=== PATIENT | male | born 1955 | race Two or more races ===

== ENCOUNTER 2019-02-01 11:20 | Inpatient (IN) | payer OTHER ==
[2019-02-01 12:43] VITALS: BMI 32.7
--- NOTE | 2019-02-01 13:55 | HP ---
COWS - Scale Resting Pulse: 0= CT 80 or Below Sweatin= Chills/Flushing Restless Observation: 1= Difficult to Sit Still Pupil Size: 0= Normal to Room Light Bone or Joint Aches: 0= None Runny Nose/ Eye Tearin= Runny Nose/Eyes GI Upset > 30mins: 1= Stomach Cramp Tremor Observation: 2= Slight Tremor Visible Yawning Observation: 1= 1-2x During Session Anxiety or Irritability: 0= None Goose Flesh Skin: 0=Smooth Skin COWS Score: 8 CIWA Score - Admission Criteria OAS Guidelines: Admission for Medically Managed Detox: Requires at least one of the followin. CIWA greater than 12 2. Seizures within the past 24 hours 3. Delirium tremens within the past 24 hours 4. Hallucinations within the past 24 hours 5. Acute intervention needed for co occurring medical disorder 6. Acute intervention needed for co occurring psychiatric disorder 7. Severe withdrawal that cannot be handled at a lower level of care (continued vomiting, continued diarrhea, abnormal vital signs) requiring intravenous medication and/or fluids 8. Admitting History and Physical - Admission History Source: Patient Limitations to Obtaining History: No Limitations - Past Medical History Cardiovascular: Yes: HTN, [place] (x2) Hepatobiliary: Yes: Hepatitis B (currently being treated) Renal/: Yes: BPH Infectious Disease: Yes: HIV (on HAART) - Past Surgical History Past Surgical History: Yes: Cholecystectomy - Smoking History Smoking history: Former smoker Have you smoked in the past 12 months: No If you are a former smoker, when did you quit?: 27 + years - Alcohol/Substance Use Hx Alcohol Use: Yes (drank 2 beers during Superbowl, otherwise no use) Admission [facility] Chief Complaint: heroin abuse, crack cocaine abus Allergies/Adverse Reactions: Allergies Allergy/AdvReac Type Severity Reaction Status Date / Time codeine Allergy Unknown Rash Verified 02/01/19 12:22 Sulfa (Sulfonamide Allergy Unknown Rash Verified 02/01/19 12:22 Antibiotics) History of Present Illness: 63 y.o. M PMH HIV+ on HAART, HTN, Hep B on treatment, 2x FL's (most recently this March), HLD, asthma, BPH presenting for detox and rehab. Heroin: Daily use; 0.5g (7-8 bags) but uses more if he can get more. Last used earlier today, ~0.5g but has been using all night. Sniffs, never injected. Has been using for "a couple years". Has never overdosed in the past. Crack, cocaine: uses a few times per week. Uses as much as he can get a hold of. Never injected in the past. EtOH: socially. drinks "once in a [place]". PSH: cholecystectomy, prostate laser treatment Social hx: was in apartment but lost it a few months ago, now homeless. Not currently working. on SSI. All: codeine, sulfur Meds: lisinopril Exam Limitations: No Limitations - Ebola screening Have you traveled outside of the country in the last 21 days: No Have you had contact with anyone from an Ebola affected area: No Do you have a fever: No - Review of Systems Constitutional: Diaphoresis EENT: reports: Tearing, Other (rhinorrhea) Respiratory: reports: No Symptoms reported Cardiac: reports: No Symptoms Reported GI: reports: Abdominal cramping : reports: Other (urinary hesitancy) Musculoskeletal: reports: No Symptoms Reported Integumentary: reports: No Symptoms Reported Neuro: reports: Tremors Endocrine: reports: No Symptoms Reported Hematology: reports: No Symptoms Reported Psychiatric: reports: Mood/Affect Appropiate, Orientated x3 Patient History - Patient Medical History Hx Anemia: No Hx Asthma: Yes Hx Chronic Obstructive Pulmonary Disease (COPD): No Hx Cancer: No Hx Cardiac Disorders: Yes (heart murmur, evaluated by cardio 09/27/14) Hx Hypertension: Yes Hx Hypercholesterolemia: Yes Hx Pacemaker: No Hx Seizures: No Hx Dementia: No Hx Diabetes: No Hx Gastrointestinal Disorders: No Hx Liver Disease: No Hx Genitourinary Disorders: Yes (BPH) Hx Sexually Transmitted Disorders: No Hx Renal Disease (ESRD): No Hx Thyroid Disease: No Hx Human Immunodeficiency Virus (HIV): Yes Hx Hepatitis C: No Hx Depression: No Hx Bipolar Disorder: No Other Medical History: Hepatitis B - Patient Surgical History Past Surgical History: Yes Hx Neurologic Surgery: No Hx Cataract Extraction: No Hx Cardiac Surgery: No Hx Lung Surgery: No Hx Abdominal Surgery: No Hx Appendectomy: No Hx Cholecystectomy: Yes (1995, general anesthesia, no complications) Hx Genitourinary Surgery: Yes (prostatic laser surgery) Hx Section: No Hx Orthopedic Surgery: No Anesthesia Reaction: No - Smoking Cessation Smoking history: Former smoker Have you smoked in the past 12 months: No If you are a former smoker, when did you quit?: 27 + years Cigars Per Day: 0 Hx Chewing Tobacco Use: No Initiated information on smoking cessation: Yes 'Breaking Loose' booklet given: 02/01/19 - Substance & Tx. History Hx Alcohol Use: Yes Substance Use Type: Cocaine, Heroin Hx Substance Use Treatment: No - Substances abused Heroin Substance route: Inhalation Frequency: Daily Amount used: 1 gram Age of first use: 22 Date of last use: 02/01/19 Crack Substance route: Inhalation Frequency: 3-6 times per week Amount used: varies Age of first use: 22 Date of last use: 01/31/19 Cocaine Substance route: Inhalation Frequency: Daily Amount used: 1 1/2 gram Age of first use: 22 Date of last use: 01/31/19 Admission Physical Exam [facility] - Vital Signs Vital Signs: Vital Signs - 24 hr 02/01/19 02/01/19 12:39 13:24 Temperature 98.9 F 98.9 F Pulse Rate 75 75 Respiratory 17 17 Rate Blood Pressure 194/96 H 194/96 H - Physical General Appearance: Yes: No Apparent Distress HEENTM: Yes: Hearing grossly Normal, Normal ENT Inspection, Normocephalic, Normal Voice, SOFÍA Respiratory: Yes: Within Normal Limits, Lungs Clear, Normal Breath Sounds, No Respiratory Distress, No Accessory Muscle Use Neck: Yes: Within Normal Limits Cardiology: Yes: Regular Rate, Systolic Murmur Abdominal: Yes: Within Normal Limits, Non Tender, Soft Genitourinary: Yes: Hesitency Back: Yes: Normal Inspection Musculoskeletal: Yes: full range of Motion Extremities: Yes: Within Normal Limits, Normal Range of Motion Neurological: Yes: Fully Oriented, Alert, Normal Mood/Affect Integumentary: Yes: Within Normal Limits Lymphatic: Yes: Within Normal Limits - Diagnostic (1) Heroin abuse Current Visit: Yes Status: Chronic (2) Cocaine abuse Current Visit: Yes Status: Chronic (3) Essential hypertension Current Visit: Yes Status: Chronic Cleared for Admission [facility] - Detox or Rehab Detox Regimen/Protocol: Methadone Breathalyzer - Breathalyzer Breathalyzer: 0 Urine Drug Screen - Test Device Lot number: [id number] Expiration date: 09/25/20 - Control Is test valid?: Yes - Results Drug screen NEGATIVE: No Urine drug screen results: JER-Cocaine, FEN-Fentanyl, MOP-Opiates, OXY-Oxycodone Inpatient Rehab Admission - Rehab Decision to Admit Inpatient rehab admission?: No
[2019-02-01] MEDS ORDERED: IBUPROFEN 400 MG TABLET (FP) PO PRN (14:12)
[2019-02-01] MEDS ORDERED: BISMUTH SUBSALICYLATE 524 MG/30 ML UD PO PRN (14:12)
[2019-02-01] MEDS ORDERED: MAGNESIUM CITRATE 300 ML BOTTLE PO PRN (14:12)
[2019-02-01] MEDS ORDERED: METHOCARBAMOL 500 MG TABLET PO PRN (14:12)
[2019-02-01] MEDS ORDERED: hydrOXYzine PAMOATE 25 MG CAPSULE (FP) PO PRN (14:12)
[2019-02-01] MEDS ORDERED: cloNIDine HCL 0.1 MG TABLET PO PRN (14:12)
[2019-02-01] MEDS ORDERED: MENTHOL/PHENOL 1 EACH UD MM PRN (14:12)
[2019-02-01] MEDS ORDERED: MAGNESIUM HYDROX 2400MG/30ML ORAL SUSPENSION 30 ML CUP PO PRN (14:12)
[2019-02-01] MEDS ORDERED: MAG HYDROX/AL HYDROX/SIMETH 30 ML UNIT-DOSE CUP PO PRN (14:12)
[2019-02-01] MEDS ORDERED: MELATONIN 5 MG TABLETS PO PRN (14:12)
[2019-02-01] MEDS ORDERED: ACETAMINOPHEN 325 MG TABLET (FP) PO PRN ×2 (14:12)
[2019-02-01] MEDS ORDERED: ALBUTEROL SO4 8 GM HFA INHALER IH PRN (15:04)
[2019-02-01] MEDS ORDERED: METHADONE HCL 10 MG TABLET (FOR DETOX USE ONLY) PO ONE (15:25)
--- NOTE | 2019-02-01 15:37 | PN ---
Teaching Attending Note Name of Resident: Rufina Preston ATTENDING PHYSICIAN STATEMENT I saw and evaluated the patient. I reviewed the resident's note and discussed the case with the resident. I agree with the resident's findings and plan as documented. SUBJECTIVE: Agree with subjective resident findings OBJECTIVE: Agree with objective resident findings ASSESSMENT AND PLAN: Agree with admission to detox.
[2019-02-01] MEDS: LISINOPRIL 20 MG TABLET (FP) PO SCH (17:07)
[2019-02-01] MEDS: ASPIRIN 81 MG CHEWABLE TABLETS PO SCH (17:07)
[2019-02-01] MEDS ORDERED: ENTECAVIR 0.5 MG TABLET PO SCH (18:00)
[2019-02-01] MEDS: DARUNAVIR ETHANOLATE 600 MG TAB PO SCH (19:08)
[2019-02-01] MEDS: BICTEGRAV/EMTRICIT/TENOFOV (BIKTARVY) 50-200-25 MG TABLET PO SCH (19:09)
[2019-02-01] MEDS: RITONAVIR 100 MG TABLET PO SCH (19:09)
[2019-02-01] MEDS: THIAMINE HCL 100 MG TABLET (FP) PO SCH (22:33)
[2019-02-01] MEDS: ATORVASTATIN CA 10 MG TABLET (FP) PO SCH (22:33)
[2019-02-01] MEDS: CARVEDILOL 3.125 MG TABLET (FP) PO SCH (22:33)
[2019-02-02] MEDS: RITONAVIR 100 MG TABLET PO SCH ×2 (07:44→17:21)
[2019-02-02] MEDS: BICTEGRAV/EMTRICIT/TENOFOV (BIKTARVY) 50-200-25 MG TABLET PO SCH (07:44)
[2019-02-02] MEDS: DARUNAVIR ETHANOLATE 600 MG TAB PO SCH ×2 (07:44→17:21)
[2019-02-02 09:41] LABS: HEMATOCRIT 43.9 % (35.4-49); HEMOGLOBIN 14.9 GM/dL (11.7-16.9); MCH 31.4 pg (25.7-33.7); MCHC 33.8 g/dl (32.0-35.9); MEAN CELL VOLUME 92.9 fl (80-96); MEAN PLT VOLUME 10.3 fl (7.5-11.1); PLATELET COUNT 236 K/MM3 (134-434); RBC 4.73 M/mm3 (4.00-5.60); RDW 13.5 % (11.9-15.9); WHITE BLOOD COUNT 7.3 K/mm3 (4.0-10.0)
[2019-02-02 09:58] LABS: ALBUMIN 4.1 g/dl (3.4-5.0); BILIRUBIN,TOTAL 0.7 mg/dL (0.2-1); BLOOD UREA NITROGEN 14.3 mg/dL (7-18); CALCIUM 9.3 mg/dL (8.5-10.1); CREATININE 1.4 mg/dL (0.55-1.3); POTASSIUM 3.9 mmol/L (3.5-5.1); TOT PROT 7.7 g/dl (6.4-8.2)
[2019-02-02] MEDS ORDERED: METHADONE HCL 5 MG TABLET (FOR DETOX USE ONLY) PO ONE (10:00)
--- NOTE | 2019-02-02 10:28 | PN ---
[facility] COWS - Scale Resting Pulse: 0= [place] 80 or Below Sweatin= Chills/Flushing Restless Observation: 0= Sits Still Pupil Size: 1= Pupils >than Normal Bone or Joint Aches: 1= Mild Discomfort Runny Nose/ Eye Tearin= None GI Upset > 30mins: 1= Stomach Cramp Tremor Observation of Outstretched Hands: 2= Slight Tremor Visible Yawning Observation: 0= None Anxiety or Irritability: 2=Irritable/Anxious Goose Flesh Skin: 3=Piloerection COWS Score: 11 S Progress Note (SOAP) Subjective: 63 years old male admitted on 02/01/19 for opiate withdrawal sx management treated with methadone detox regimen patient tolerated well ate breakfast resting in bed Objective: 02/02/19 10:27 Vital Signs Temperature 98.4 F 02/02/19 09:19 Pulse Rate 64 02/02/19 09:19 Respiratory Rate 18 02/02/19 09:19 Blood Pressure 157/77 02/02/19 09:19 O2 Sat by Pulse Oximetry (%) Laboratory Last Values WBC 7.3 K/mm3 (4.0-10.0) 02/02/19 06:15 RBC 4.73 M/mm3 (4.00-5.60) 02/02/19 06:15 Hgb 14.9 GM/dL (11.7-16.9) 02/02/19 06:15 Hct 43.9 % (35.4-49) 02/02/19 06:15 MCV 92.9 fl (80-96) 02/02/19 06:15 MCH 31.4 pg (25.7-33.7) 02/02/19 06:15 MCHC 33.8 g/dl (32.0-35.9) 02/02/19 06:15 RDW 13.5 % (11.9-15.9) 02/02/19 06:15 Plt Count 236 K/MM3 (134-434) 02/02/19 06:15 MPV 10.3 fl (7.5-11.1) 02/02/19 06:15 Sodium 141 mmol/L (136-145) 02/02/19 06:15 Potassium 3.9 mmol/L (3.5-5.1) 02/02/19 06:15 Chloride 102 mmol/L (98-107) 02/02/19 06:15 Carbon Dioxide 35 mmol/L (21-32) H 02/02/19 06:15 Anion Gap 4 MMOL/L (8-16) L 02/02/19 06:15 BUN 14.3 mg/dL (7-18) 02/02/19 06:15 Creatinine 1.4 mg/dL (0.55-1.3) H 02/02/19 06:15 Est GFR (CKD-EPI)AfAm 62.40 02/02/19 06:15 Est GFR (CKD-EPI)NonAf 53.84 02/02/19 06:15 Random Glucose 106 mg/dL (74-106) 02/02/19 06:15 Calcium 9.3 mg/dL (8.5-10.1) 02/02/19 06:15 Total Bilirubin 0.7 mg/dL (0.2-1) 02/02/19 06:15 AST 29 U/L (15-37) 02/02/19 06:15 ALT 36 U/L (13-61) 02/02/19 06:15 Alkaline Phosphatase 81 U/L (45-117) 02/02/19 06:15 Total Protein 7.7 g/dl (6.4-8.2) 02/02/19 06:15 Albumin 4.1 g/dl (3.4-5.0) 02/02/19 06:15 lab noted 02/02/19 10:27 resume antihypertensive medication Assessment: 02/02/19 10:28 opiate withdrawal sx Plan: continue methadone detox regimen
[2019-02-02] MEDS: PRENATAL VITAMINS W/ FOLIC ACID TABLET (FP) PO SCH (10:40)
[2019-02-02] MEDS: TAMSULOSIN HCL 0.4 MG CAP PO SCH (10:40)
[2019-02-02] MEDS: CARVEDILOL 3.125 MG TABLET (FP) PO SCH ×2 (10:40→21:52)
[2019-02-02] MEDS: ENTECAVIR 0.5 MG TABLET PO SCH (10:40)
[2019-02-02] MEDS: ASPIRIN 81 MG CHEWABLE TABLETS PO SCH (10:40)
[2019-02-02] MEDS: LISINOPRIL 20 MG TABLET (FP) PO SCH (10:40)
[2019-02-02] MEDS ORDERED: FLU VACCINE QUAD 60 MCG/0.5 ML (MDV 19-20) IM ONE (12:00)
--- NOTE | 2019-02-02 12:00 | EKG ---
Test Reason : Blood Pressure : / mmHG Vent. Rate : 061 BPM Atrial Rate : 061 BPM P-R Int : 152 ms QRS Dur : 084 ms QT Int : 470 ms P-R-T Axes : 053 -35 138 degrees QTc Int : 473 ms NORMAL SINUS RHYTHM POSSIBLE LEFT ATRIAL ENLARGEMENT LEFT AXIS DEVIATION LEFT VENTRICULAR HYPERTROPHY ST ELEVATION, CONSIDER EARLY REPOLARIZATION, PERICARDITIS, OR INJURY T WAVE ABNORMALITY, CONSIDER LATERAL ISCHEMIA PROLONGED QT ABNORMAL ECG NO PREVIOUS ECGS AVAILABLE Confirmed by HERNÁN JERNIGAN MD ([id number]) on 02/02/2019 12:00:13 PM Referred By: Confirmed By:HERNÁN JERNIGAN MD
[2019-02-02] MEDS: THIAMINE HCL 100 MG TABLET (FP) PO SCH (21:52)
[2019-02-02] MEDS: ATORVASTATIN CA 10 MG TABLET (FP) PO SCH (21:52)
[2019-02-03] MEDS: LISINOPRIL 20 MG TABLET (FP) PO SCH (09:08)
[2019-02-03] MEDS: ASPIRIN 81 MG CHEWABLE TABLETS PO SCH (09:09)
[2019-02-03] MEDS: TAMSULOSIN HCL 0.4 MG CAP PO SCH (09:09)
[2019-02-03] MEDS: PRENATAL VITAMINS W/ FOLIC ACID TABLET (FP) PO SCH (09:09)
[2019-02-03] MEDS: BICTEGRAV/EMTRICIT/TENOFOV (BIKTARVY) 50-200-25 MG TABLET PO SCH (09:09)
[2019-02-03] MEDS: RITONAVIR 100 MG TABLET PO SCH ×2 (09:09→17:50)
[2019-02-03] MEDS: CARVEDILOL 3.125 MG TABLET (FP) PO SCH ×2 (09:09→22:03)
[2019-02-03] MEDS: ENTECAVIR 0.5 MG TABLET PO SCH (09:09)
[2019-02-03] MEDS: DARUNAVIR ETHANOLATE 600 MG TAB PO SCH ×2 (09:09→17:50)
[2019-02-03] MEDS ORDERED: METHADONE HCL 10 MG TABLET (FOR DETOX USE ONLY) PO ONE (10:00)
--- NOTE | 2019-02-03 13:36 | EKG ---
Test Reason : Blood Pressure : / mmHG Vent. Rate : 071 BPM Atrial Rate : 071 BPM P-R Int : 120 ms QRS Dur : 084 ms QT Int : 444 ms P-R-T Axes : 068 -30 146 degrees QTc Int : 482 ms NORMAL SINUS RHYTHM BIATRIAL ENLARGEMENT LEFT AXIS DEVIATION LEFT VENTRICULAR HYPERTROPHY ST ELEVATION, CONSIDER EARLY REPOLARIZATION, PERICARDITIS, OR INJURY PROLONGED QT ABNORMAL ECG NO PREVIOUS ECGS AVAILABLE Confirmed by ELE GOFF MD ([id number]) on 02/03/2019 1:36:04 PM Referred By: Bridget MARTINEZ Confirmed By:ELE GOFF MD
--- NOTE | 2019-02-03 15:51 | PN ---
[facility] COWS - Scale Resting Pulse: 0= [place] 80 or Below Sweatin= No chills or Flushing Restless Observation: 1= Difficult to Sit Still Pupil Size: 1= Pupils >than Normal Bone or Joint Aches: 1= Mild Discomfort Runny Nose/ Eye Tearin= Nasal Congestion GI Upset > 30mins: 1= Stomach Cramp Tremor Observation of Outstretched Hands: 1= Tremor [place], Not Seen Yawning Observation: 1= 1-2x During Session Anxiety or Irritability: 1=Feels Anxious/Irritable Goose Flesh Skin: 0=Smooth Skin COWS Score: 8 S Progress Note (SOAP) Subjective: alert,irritable,pain in the body and back,interrupted sleep Objective: 02/03/19 15:49 Vital Signs Temperature 98.1 F 02/03/19 13:26 Pulse Rate 66 02/03/19 13:26 Respiratory Rate 18 02/03/19 13:26 Blood Pressure 146/70 02/03/19 13:26 O2 Sat by Pulse Oximetry (%) Laboratory Last Values WBC 7.3 K/mm3 (4.0-10.0) 02/02/19 06:15 RBC 4.73 M/mm3 (4.00-5.60) 02/02/19 06:15 Hgb 14.9 GM/dL (11.7-16.9) 02/02/19 06:15 Hct 43.9 % (35.4-49) 02/02/19 06:15 MCV 92.9 fl (80-96) 02/02/19 06:15 MCH 31.4 pg (25.7-33.7) 02/02/19 06:15 MCHC 33.8 g/dl (32.0-35.9) 02/02/19 06:15 RDW 13.5 % (11.9-15.9) 02/02/19 06:15 Plt Count 236 K/MM3 (134-434) 02/02/19 06:15 MPV 10.3 fl (7.5-11.1) 02/02/19 06:15 Sodium 141 mmol/L (136-145) 02/02/19 06:15 Potassium 3.9 mmol/L (3.5-5.1) 02/02/19 06:15 Chloride 102 mmol/L (98-107) 02/02/19 06:15 Carbon Dioxide 35 mmol/L (21-32) H 02/02/19 06:15 Anion Gap 4 MMOL/L (8-16) L 02/02/19 06:15 BUN 14.3 mg/dL (7-18) 02/02/19 06:15 Creatinine 1.4 mg/dL (0.55-1.3) H 02/02/19 06:15 Est GFR (CKD-EPI)AfAm 62.40 02/02/19 06:15 Est GFR (CKD-EPI)NonAf 53.84 02/02/19 06:15 Random Glucose 106 mg/dL (74-106) 02/02/19 06:15 Calcium 9.3 mg/dL (8.5-10.1) 02/02/19 06:15 Total Bilirubin 0.7 mg/dL (0.2-1) 02/02/19 06:15 AST 29 U/L (15-37) 02/02/19 06:15 ALT 36 U/L (13-61) 02/02/19 06:15 Alkaline Phosphatase 81 U/L (45-117) 02/02/19 06:15 Total Protein 7.7 g/dl (6.4-8.2) 02/02/19 06:15 Albumin 4.1 g/dl (3.4-5.0) 02/02/19 06:15 RPR Titer Nonreactive (NONREACTIVE) 02/02/19 06:15 Assessment: 02/03/19 15:50 withdrawal symptom Plan: continue detox methadone regimen
[2019-02-03] MEDS: THIAMINE HCL 100 MG TABLET (FP) PO SCH (22:03)
[2019-02-03] MEDS: ATORVASTATIN CA 10 MG TABLET (FP) PO SCH (22:03)
[2019-02-04] MEDS ORDERED: METHADONE HCL 5 MG TABLET (FOR DETOX USE ONLY) PO ONE (06:00)
[2019-02-04] MEDS: RITONAVIR 100 MG TABLET PO SCH (07:00)
[2019-02-04] MEDS: BICTEGRAV/EMTRICIT/TENOFOV (BIKTARVY) 50-200-25 MG TABLET PO SCH (07:00)
[2019-02-04] MEDS: DARUNAVIR ETHANOLATE 600 MG TAB PO SCH (07:00)
[2019-02-04 09:38] VITALS: BP 153/83; PULSE 58; TEMP 97.1
[2019-02-04] MEDS: TAMSULOSIN HCL 0.4 MG CAP PO SCH (09:38)
[2019-02-04] MEDS: PRENATAL VITAMINS W/ FOLIC ACID TABLET (FP) PO SCH (09:38)
[2019-02-04] MEDS: ASPIRIN 81 MG CHEWABLE TABLETS PO SCH (09:39)
[2019-02-04] MEDS: LISINOPRIL 20 MG TABLET (FP) PO SCH (09:39)
[2019-02-04] MEDS: ENTECAVIR 0.5 MG TABLET PO SCH (09:40)
[2019-02-04] MEDS: CARVEDILOL 3.125 MG TABLET (FP) PO SCH (09:40)
--- NOTE | 2019-02-04 15:09 | DS ---
[facility] Detox Discharge Summary Admission Date: 02/01/19 Discharge Date: 02/04/19 - History Present History: Alcohol Dependence, Cocaine Dependence, Opioid Dependence Additional Comments: Pt is medically cleared and is discharged today. Pt completed the detox protocol. Pt is instructed to follow-up with [facility] outpatient program and also to follow-up with his pmd. Pt verbalized understanding. Pt is alert and oriented x3 and in no respiratory distress. Pertinent Past History: H/o HIV+, HTN, HLD, asthma, BPH, Heroin, cocaine, and alcohol use disorder. - Physical Exam Results Vital Signs: Vital Signs Temperature 97.1 F L 02/04/19 09:37 Pulse Rate 58 L 02/04/19 09:37 Respiratory Rate 18 02/04/19 09:37 Blood Pressure 153/83 02/04/19 09:37 O2 Sat by Pulse Oximetry (%) Vital Signs 02/04/19 09:37 Temperature 97.1 F L Pulse Rate 58 L Respiratory 18 Rate Blood Pressure 153/83 Laboratory Last Values WBC 7.3 K/mm3 (4.0-10.0) 02/02/19 06:15 RBC 4.73 M/mm3 (4.00-5.60) 02/02/19 06:15 Hgb 14.9 GM/dL (11.7-16.9) 02/02/19 06:15 Hct 43.9 % (35.4-49) 02/02/19 06:15 MCV 92.9 fl (80-96) 02/02/19 06:15 MCH 31.4 pg (25.7-33.7) 02/02/19 06:15 MCHC 33.8 g/dl (32.0-35.9) 02/02/19 06:15 RDW 13.5 % (11.9-15.9) 02/02/19 06:15 Plt Count 236 K/MM3 (134-434) 02/02/19 06:15 MPV 10.3 fl (7.5-11.1) 02/02/19 06:15 Sodium 141 mmol/L (136-145) 02/02/19 06:15 Potassium 3.9 mmol/L (3.5-5.1) 02/02/19 06:15 Chloride 102 mmol/L (98-107) 02/02/19 06:15 Carbon Dioxide 35 mmol/L (21-32) H 02/02/19 06:15 Anion Gap 4 MMOL/L (8-16) L 02/02/19 06:15 BUN 14.3 mg/dL (7-18) 02/02/19 06:15 Creatinine 1.4 mg/dL (0.55-1.3) H 02/02/19 06:15 Est GFR (CKD-EPI)AfAm 62.40 02/02/19 06:15 Est GFR (CKD-EPI)NonAf 53.84 02/02/19 06:15 Random Glucose 106 mg/dL (74-106) 02/02/19 06:15 Calcium 9.3 mg/dL (8.5-10.1) 02/02/19 06:15 Total Bilirubin 0.7 mg/dL (0.2-1) 02/02/19 06:15 AST 29 U/L (15-37) 02/02/19 06:15 ALT 36 U/L (13-61) 02/02/19 06:15 Alkaline Phosphatase 81 U/L (45-117) 02/02/19 06:15 Total Protein 7.7 g/dl (6.4-8.2) 02/02/19 06:15 Albumin 4.1 g/dl (3.4-5.0) 02/02/19 06:15 RPR Titer Nonreactive (NONREACTIVE) 02/02/19 06:15 Labs noted. Pertinent Admission Physical Exam Findings: withdrawal symptoms. - Treatment Hospital Course: Detox Protocol Followed, Detoxed Safely, Responded well, Discharged Condition Good - Medication Discharge Medications: Ambulatory Orders Darunavir Ethanolate [Prezista -] 600 mg PO BID #60 tab 08/13/15 Ritonavir [Norvir -] 100 mg PO BID #30 tab 08/13/15 Albuterol Sulfate [Proair Hfa] 2 puff IH QID PRN 02/01/19 Aspirin [ASA -] 81 mg PO DAILY 02/01/19 Atorvastatin Calcium [Lipitor] 10 mg PO HS 02/01/19 Bictegrav/Emtricit/Tenofov Ala [Biktarvy 50-200-25 mg Tablet] 1 each PO DAILY Carvedilol 3.125 mg PO BID 02/01/19 Entecavir 1 mg PO DAILY 02/01/19 Lisinopril [Prinivil] 40 mg PO DAILY 02/01/19 Nitroglycerin Sublingual [Nitrostat -] 0.4 mg SL ASDIR PRN 02/01/19 Tamsulosin HCl [Flomax] 0.4 mg PO DAILY 02/01/19 - Diagnosis (1) Renal cyst Status: Acute (2) BPH (benign prostatic hypertrophy) Status: Chronic (3) Cocaine abuse Status: Chronic (4) Essential hypertension Status: Chronic (5) Hepatitis B Status: Chronic (6) Heroin abuse Status: Chronic (7) Human immunodeficiency virus (HIV) disease Status: Chronic (8) Hypertension, benign Status: Chronic (9) Low back pain Status: Chronic Qualifiers: Back pain laterality: midline back pain Sciatica presence: without sciatica Qualified Code(s): M54.5 - Low back pain - AMA Did Patient Leave Against Medical Advice: No
== END 2019-02-04 09:57 | disposition home or self-care (01) | DRG 773 ==
LOC: YASAS 11:20 → Y3N 15:05
PROVIDERS: ADMIT Allergy & Immunology; ATTEND Allergy & Immunology
PROC: HZ2ZZZZ Detoxification Services for Substance Abuse Treatment (ICD-10-PCS; principal; 2019-02-01)
DX: F10.230 Alcohol dependence with withdrawal, uncomplicated (principal); F11.23 Opioid dependence with withdrawal; F14.20 Cocaine dependence, uncomplicated; Z87.891 Personal history of nicotine dependence; Z21 Asymptomatic human immunodeficiency virus [HIV] infection status; J45.909 Unspecified asthma, uncomplicated; I25.10 Atherosclerotic heart disease of native coronary artery without angina pectoris; I10 Essential (primary) hypertension; I25.2 Old myocardial infarction; E78.5 Hyperlipidemia, unspecified; N28.1 Cyst of kidney, acquired; N40.0 Benign prostatic hyperplasia without lower urinary tract symptoms; B19.10 Unspecified viral hepatitis B without hepatic coma; M54.5 Low back pain; Z88.2 Allergy status to sulfonamides; Z88.5 Allergy status to narcotic agent; Z59.0 Homelessness
CPT/HCPCS: 36415; 71046-TC-FY; 80053; 85027; 86593; 93005; 93010; J0735; Q2036